=== PATIENT | male | born 1985 | race African-American/Black ===

== ENCOUNTER 2019-10-11 21:41 | Emergency (ER) | payer MEDICAID ==
[~2019-10-11] VITALS: Ht 172.7 cm; Wt 95.0 kg
[2019-10-11 21:47] VITALS: BP 144/92
== END 2019-10-11 22:35 | disposition left against medical advice (07) ==
LOC: ER 21:41
DX: Z53.21 Procedure and treatment not carried out due to patient leaving prior to being seen by health care provider (principal)